=== PATIENT | female | born 1990 | race Caucasian/White ===

== ENCOUNTER 2021-10-19 19:25 | Emergency (ER) | payer OTHER ==
[2021-10-19] MEDS ORDERED: DUONEB 0.5-3 MG/3 ml Neb IH ONE ×2 (19:41→19:52)
[2021-10-19 19:56] LABS: Basophil (Absolute #) 0.02 (0-0.4); Eosinophil % 2.3 % (0.00-5.0); Eosinophil (Absolute #) 0.15 (0-0.5); Hematocrit 31.6 % (35-47); Hemoglobin 9.5 gm/dl (12.0-16.0); Lymphocyte (Absolute #) 1.76 (1.0-4.6); Mean Cell Volume 81.2 fl (78-100); Mean Corpuscular Hemoglobin 24.4 pg (26-32); Mean Corpuscular Hgb Concent. 30.1 g/dl (32-36); Mean Platelet Volume 9.9 fl (7.5-11.0); Monocyte (Absolute #) 0.48 (0.0-1.3); Monocytes % 7.4 % (0.0-12.0); Platelet Count 620 K/mm3 (150-450); Red Blood Count 3.89 M/mm3 (4.1-5.4); White Blood Count 6.5 K/mm3 (4.0-10.5)
[2021-10-19 20:08] LABS: ALBUMIN 4.4 g/dL (3.5-5.0); ALKALINE PHOSPHATASE 99 U/L (38-126); ANION GAP 14.5 MEQ/L (5-15); BLOOD UREA NITROGEN 7 mg/dL (7-17); CHLORIDE 105 mmol/L (98-107); Calcium 9.2 mg/dL (8.4-10.2); Carbon Dioxide 26 mmol/L (22-30); Creatinine 1 0.76 mg/dL (0.52-1.04); EST GLOMERULAR FILTRATION RATE > 60.0 ML/MIN; Glucose 80 mg/dL (74-106); MAGNESIUM 2.1 mg/dL (1.6-2.3); Potassium 3.7 mmol/L (3.5-5.1); SGOT/AST 38 U/L (14-36); SGPT/ALT 23 U/L (0-35); SODIUM 142 mmol/L (137-145)
--- NOTE | 2021-10-19 20:59 | ERPHSYRPT ---
- History of Present Illness Time Seen by Provider: 10/19/21 19:30 Source: patient Exam Limitations: no limitations Patient Subjective Stated Complaint: pt states "I began to be short of breath this morning." Triage Nursing Assessment: pt came into the er via wheelchair; pt is axo x4; c/o SOB; pt states she just had a total hysterectomy 3 weeks ago and was hospitalized with a blood clot in her lung 2 weeks ago; pt states that she has not been taking blood thinners; pt is restless in tripod position; pt states sharp pain with breathing; lung sounds are clear in all lobes anterior and posterior; O2 100% on room air; vitals wnl; pt denies cough, fever Physician History: 31 years old female with recent hysterectomy almost 3 weeks ago and developing PE, was hospitalized at [place], was started on Eliquis which she has not been taking since discharge presented with sudden onset increasing shortness of breath since morning with associated dull aching chest pain radiation to the shoulder blade area, moderate intensity and also having chest pain with deep breathing. No significant aggravating or relieving factors. Patient is very anxious. Denies any lower extremity swelling or pain. Has minimal nonproductive cough. No fever or chills reported. Timing/Duration: day(s) (1), constant, sudden, worse Activities at Onset: sleep Severity of Dyspnea-Max: severe Severity of Dyspnea-Current: severe Modifying Factors: Improves With: nothing Associated Symptoms: cough, chest pain/discomfort, painful breathing, tightness, No calf pain Allergies/Adverse Reactions: meclizine Allergy (Verified 10/19/21 19:26) Home Medications: Topiramate 100 mg PO BID 08/23/21 [History] Hx Tetanus, Diphtheria Vaccination/Date Given: No Hx Influenza Vaccination/Date Given: No Hx Pneumococcal Vaccination/Date Given: No Travel Risk - International Travel Have you traveled outside of the country in past 3 weeks: No - Coronavirus Screening Are you exhibiting any of the following symptoms?: Yes Symptoms: Shortness of Breath Close contact with a COVID-19 positive Pt in past 14-21 Days: No - Vaccine Status Have you recieved a Covid-19 vaccination: No - Review of Systems Constitutional: No Symptoms Eyes: No Symptoms Ears, Nose, & Throat: No Symptoms Respiratory: Cough, Dyspnea, Dyspnea on Exertion (AREVALO) Cardiac: Chest Pain Abdominal/Gastrointestinal: No Symptoms Genitourinary Symptoms: No Symptoms Musculoskeletal: No Symptoms Skin: No Symptoms Neurological: No Symptoms Psychological: Anxiety Hematologic/Lymphatic: Blood Clots Immunological/Allergic: No Symptoms - Past Medical History Pertinent Past Medical History: Yes Neurological History: Epilepsy ENT History: No Pertinent History Cardiac History: No Pertinent History Respiratory History: No Pertinent History Endocrine Medical History: No Pertinent History Musculoskeletal History: Fractures GI Medical History: Gallbladder Disease History: No Pertinent History Psycho-Social History: Anxiety, Depression Female Reproductive Disorders: Cervical Cancer, Menstrual Problems Other Medical History: poss.cervical cancer - Past Surgical History Past Surgical History: Yes Neuro Surgical History: No Pertinent History Cardiac: No Pertinent History Respiratory: No Pertinent History Gastrointestinal: Cholecystectomy Genitourinary: No Pertinent History Musculoskeletal: Joint Replacement Female Surgical History: Hysterectomy, Tubal Ligation Other Surgical History: 5 screw in left hip, 13 surgeries on left leg - Social History Smoking Status: Never smoker Exposure to second hand smoke: Yes Drug Use: none Patient Lives Alone: No - Female History Hx Now: No - Nursing Vital Signs Nursing Vital Signs: Initial Vital Signs Temperature 97.6 F 10/19/21 19:27 Pulse Rate 96 H 10/19/21 19:27 Respiratory Rate 12 10/19/21 19:27 Blood Pressure 95/78 10/19/21 19:27 O2 Sat by Pulse Oximetry 100 10/19/21 19:27 Pain Scale Pain Intensity 3 - Physical Exam General Appearance: no apparent distress, alert, anxiety Eye Exam: PERRL/EOMI, eyes nml inspection Ears, Nose, Throat Exam: hearing grossly normal, normal ENT inspection, normal pharynx Neck Exam: normal inspection, non-tender, supple, full range of motion Respiratory Exam: normal breath sounds, lungs clear, accessory muscle use Cardiovascular/Chest Exam: normal heart sounds, regular rate/rhythm Abdominal/Gastrointestinal Exam: soft, normal bowel sounds, No tenderness Extremity Exam: non-tender, normal range of motion, No calf tenderness, No pedal edema Neurologic Exam: alert, oriented x 3, 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, 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 Skin Exam: normal color SpO2 Interpretation: normal SpO2: 100 O2 Delivery: Room Air - Course EKG Interpreted by Me: RATE ([id number]), Sinus Rhythm, NORMAL AXIS, NORMAL INTERVALS, NORMAL QRS Ordered Tests: Active Orders 24 hr Category Date Time Status Weigh Box Tender STAT Care 05/12/22 19:46 Active EKG-ER Only STAT Care 10/19/21 19:41 Active IV Insertion STAT Care 10/19/21 19:41 Active Oxygen-ED Only Nasal Cannula 2 lpm Care 10/19/21 19:41 Active CHEST WITH CONTRAST [CT] Stat Exams 10/19/21 20:29 Taken CBC W DIFF Stat Lab 10/19/21 19:50 Completed CMP Stat Lab 10/19/21 19:50 Completed MAGNESIUM Stat Lab 10/19/21 19:50 Completed TROPONIN Q3H Lab 10/19/21 19:50 Completed TROPONIN Q3H Lab 10/19/21 22:59 Received TROPONIN Q3H Lab 10/20/21 01:45 Ordered TROPONIN Q3H Lab 10/20/21 04:45 Ordered TROPONIN Q3H Lab 10/20/21 07:45 Ordered Respiratory Therapy Assessment DAILY RT 10/19/21 19:56 Active Medication Summary Discontinued Medications Generic Name Dose Route Start Last Admin Trade Name Freq PRN Reason Stop Dose Admin Albuterol/Ipratropium 3 ml 10/19/21 19:41 10/19/21 19:54 Ipratropium/Albuterol Sulfate 3 Ml Ampul.Neb IH 10/19/21 19:42 3 ml STAT ONE Administration Albuterol/Ipratropium Confirm 10/19/21 19:52 Ipratropium/Albuterol Sulfate 3 Ml Ampul.Neb Administered 10/19/21 19:53 Dose 3 ml IH .STK-MED ONE Apixaban 10 mg 10/19/21 21:18 10/19/21 21:27 Apixaban 2.5 Mg Tablet PO 10/19/21 21:19 10 mg ONCE STA Administration Aspirin 324 mg 10/19/21 21:04 10/19/21 21:06 Aspirin 81 Mg Tab.Chew PO 10/19/21 21:05 324 mg STAT ONE Administration Aspirin Confirm 10/19/21 21:05 Aspirin 81 Mg Tab.Chew Administered 10/19/21 21:06 Dose 324 mg .ROUTE .STK-MED ONE Ketorolac Tromethamine 30 mg 10/19/21 21:04 10/19/21 21:06 Ketorolac Tromethamine 30 Mg/Ml Inj IV 10/19/21 21:05 30 mg STAT ONE Administration Ketorolac Tromethamine Confirm 05/12/22 21:05 Ketorolac Tromethamine 30 Mg/Ml Inj Administered 10/19/21 21:06 Dose 30 mg .ROUTE .[employer]-MED ONE Lab/Rad Data: Laboratory Result Diagrams 10/19/21 19:50 10/19/21 19:50 Laboratory Results 10/19/21 10/19/21 10/19/21 Range/Units 19:50 19:50 19:50 WBC 6.5 (4.0-10.5) K/mm3 RBC 3.89 L (4.1-5.4) M/mm3 Hgb 9.5 L (12.0-16.0) gm/dl Hct 31.6 L (35-47) % MCV 81.2 (78-100) fl MCH 24.4 L (26-32) pg MCHC 30.1 L (32-36) g/dl RDW 14.0 (11.5-14.0) % Plt Count 620 H (150-450) K/mm3 MPV 9.9 (7.5-11.0) fl Gran % 63.0 (36.0-66.0) % Eos # (Auto) 0.15 (0-0.5) Absolute Lymphs (auto) 1.76 (1.0-4.6) Absolute Monos (auto) 0.48 (0.0-1.3) Lymphocytes % 27.0 (24.0-44.0) % Monocytes % 7.4 (0.0-12.0) % Eosinophils % 2.3 (0.00-5.0) % Basophils % 0.3 (0.0-0.4) % Absolute Granulocytes 4.10 (1.4-6.9) Basophils # 0.02 (0-0.4) Sodium 142 (137-145) mmol/L Potassium 3.7 (3.5-5.1) mmol/L Chloride 105 (98-107) mmol/L Carbon Dioxide 26 (22-30) mmol/L Anion Gap 14.5 (5-15) MEQ/L BUN 7 (7-17) mg/dL Creatinine 0.76 (0.52-1.04) mg/dL Estimated GFR > 60.0 ML/MIN Glucose 80 (74-106) mg/dL Calcium 9.2 (8.4-10.2) mg/dL Magnesium 2.1 (1.6-2.3) mg/dL Total Bilirubin 0.60 (0.2-1.3) mg/dL AST 38 H (14-36) U/L ALT 23 (0-35) U/L Alkaline Phosphatase 99 (38-126) U/L Troponin I < 0.012 (0.000-0.034) ng/mL Serum Total Protein 8.0 (6.3-8.2) g/dL Albumin 4.4 (3.5-5.0) g/dL - Progress Progress: improved Air Movement: good Progress Note: 10/19/21 23:09 31-year-old is evaluated for chest pain/shortness of breath. EKG showed sinus rhythm without any ST elevation and negative troponins x2. I have obtained CTA chest which is negative for acute PE. Patient recently had subsegmental PE and is on Eliquis. I have given her a dose of Eliquis and recommended continue to go home which she has at home. Low risk for CAD. Discussed signs symptoms of worsening needing return to ER which he seems understanding. Blood Culture(s) Obtained: No Antibiotics given: No Counseled pt/family regarding: lab results, diagnosis, need for follow-up, rad results - Departure Departure Disposition: Home Clinical Impression: Atypical chest pain, Dyspnea Condition: Stable Critical Care Time: No Referrals: SCOTT HERBERT MD [Primary Care Provider] - Follow up/PCP as directed (1-2 days for reevaluation) Instructions: Shortness of Breath (Dyspnea) (DC) Additional Instructions: Continue with your Eliquis daily as recommended. Follow-up with primary care for reevaluation. Return to ER if again having chest pain palpitations or shortness of breath etc.
[2021-10-19] MEDS ORDERED: BABY ASPIRIN 81 MG CHEW PO ONE (21:04)
[2021-10-19] MEDS ORDERED: TORAdol 30 mg Injection IV ONE (21:04)
[2021-10-19] MEDS ORDERED: TORAdol 30 mg Injection ONE (21:05)
[2021-10-19] MEDS ORDERED: BABY ASPIRIN 81 MG CHEW ONE (21:05)
[2021-10-19] MEDS ORDERED: ELIQUIS 2.5 MG TABLET PO STA (21:18)
[2021-10-19 23:05] VITALS: BP 111/69; PULSE 66
[2021-10-19 23:11] VITALS: O2SAT 100
--- NOTE | 2021-10-20 09:16 | XRAY ---
Indication: Severe chest pain and heaviness. Status post hysterectomy 3 weeks ago. Pulmonary embolus. Multiple contiguous axial images obtained through the chest using 80 cc Isovue 370 contrast and PE protocol. Comparison: None There is good opacification of the pulmonary arteries to include the lobar and segmental branches. No pulmonary embolus. Heart not enlarged. Aorta is normal in course and caliber. Small left hilar calcified nodes. No pathologic mediastinal/hilar lymphadenopathy. Lungs inflated and clear with incidental tiny left lower lobe calcified granuloma. Bony thorax intact. Limited upper abdomen demonstrates mild fatty liver and cholecystectomy clips. Impression: 1. Negative pulmonary embolus. No acute cardiopulmonary abnormalities. 2. Incidental fatty liver and old granulomatous disease.
== END 2021-10-19 23:41 | disposition home or self-care (01) ==
LOC: ED 19:25
DX: R07.89 Other chest pain (principal); R06.00 Dyspnea, unspecified; R05.9 Cough, unspecified; Z86.711 Personal history of pulmonary embolism; Z79.01 Long term (current) use of anticoagulants
CPT/HCPCS: 36000; 36415; 71260; 80053; 83735; 84484; 85025; 93005; 93041; 94640; 96374; 99284; J1885; A9270-GY

== ENCOUNTER → 2021-10-19 | Emergency (ER) | payer OTHER | LOC: ED 19:17 | DX: Z53.8 Procedure and treatment not carried out for other reasons (principal) ==

== ENCOUNTER 2021-12-06 11:45 | Day surgery (SDC) | payer OTHER ==
[2021-12-06] MEDS ORDERED: Sensorcaine 0.25% 10 ML IJ ONE (11:46)
[2021-12-06] MEDS ORDERED: XYLOCAINE-MPF 1% 5ML SDV IJ ONE (11:46)
[2021-12-06] MEDS ORDERED: DIPRIVAN 200 MG/20 ML IV ONE (12:30)
[2021-12-06] MEDS ORDERED: Versed 2 MG/2 ML Injection ONE (12:32)
[2021-12-06] MEDS ORDERED: Lactated Ringers 1,000 ML IV ONE (14:28)
--- NOTE | 2021-12-07 18:30 | XRAY ---
50 seconds of fluoroscopy was used in surgery for a right lumbar sympathetic nerve block.
--- NOTE | 2021-12-08 20:52 | XRAY ---
Indication: Right lumbar Sympathetic Nerve Block. Intraoperative fluoroscopy provided for 50 seconds. 4 digital spot images submitted for interpretation demonstrates posterior needle tip projecting just anterior to a mid lumbar L2L3 segment. Small amounts of contrast injected for needle tip placement. Correlate with intraoperative findings/report.
== END 2021-12-06 13:41 | disposition home or self-care (01) ==
LOC: SDC-PAIN 11:45
PROVIDERS: ATTEND Psychiatry & Neurology Pain Medicine
DX: G90.521 Complex regional pain syndrome I of right lower limb (principal); Z79.899 Other long term (current) drug therapy
CPT/HCPCS: 01952; 64520; 72100; 77002; J2250; J2704; Q9966

== ENCOUNTER 2022-04-11 15:07 | Day surgery (SDC) | payer OTHER ==
[2022-04-11] MEDS ORDERED: Xylocaine 1% Vial 30 ML PF IJ ONE (15:08)
[2022-04-11] MEDS ORDERED: BACIGUENT 30 GM ONE (15:31)
[2022-04-11] MEDS ORDERED: Versed 2 MG/2 ML Injection ONE ×2 (16:03→16:51)
[2022-04-11] MEDS ORDERED: Lactated Ringers 1,000 ML IV ONE (16:29)
[2022-04-11] MEDS ORDERED: Ketamine HCl 50 MG/ML ONE (16:52)
[2022-04-11] MEDS ORDERED: DIPRIVAN 200 MG/20 ML IV ONE ×2 (17:15→17:36)
[2022-04-11] MEDS ORDERED: BENADRYL 50 MG/ML ONE (17:58)
[2022-04-11] MEDS ORDERED: Zofran 4 MG/2 ML VIAL ONE (17:58)
--- NOTE | 2022-04-11 18:32 | XRAY ---
Indication: Spinal stimulator trial. Intraoperative fluoroscopy provided for 1 minute 4 seconds. 4 digital spot image submitted for interpretation demonstrates initial posterior introducer needle at the thoracolumbar junction. Ultimate insertion of epidural lead with tip terminating mid thoracic level. Correlate with intraoperative findings/report.
--- NOTE | 2022-04-11 18:36 | XRAY ---
1 minute and 4 seconds fluoroscopy time in surgery for spinal cord stimulator placement.
== END 2022-04-11 18:45 | disposition home or self-care (01) ==
LOC: SDC-PAIN 15:07
PROVIDERS: ATTEND Psychiatry & Neurology Pain Medicine
DX: G90.529 Complex regional pain syndrome I of unspecified lower limb (principal); Z79.899 Other long term (current) drug therapy
CPT/HCPCS: 01941; 63650; 72100; 77002; C1778; J1200; J2001; J2250; J2405; J2704; A9270-GY

== ENCOUNTER 2022-05-09 15:23 | Emergency (ER) | payer OTHER ==
--- NOTE | 2022-05-09 15:28 | ERPHSYRPT ---
- History of Present Illness Time Seen by Provider: 05/09/22 15:28 Historian: patient Exam Limitations: no limitations Physician History: This is a 32-year-old white female patient who is chronic abdominal pain and states that she has had severe, 10 out of 10, abdominal pain for several weeks. She does see a pain specialist and saw that specialist within the last 30 days. She has a history anxiety and depression. She states nothing is changed with her abdominal pain and the multiple episodes of vomiting that she is experienced. However, she states "I just cannot take it anymore" patient has a history of cervical cancer and underwent a hysterectomy in the past for this. She is also had a cholecystectomy in the past. She has no chest pain and she has no shortness of breath. She did state that she has had over 24 abdominal surgeries in the past. Timing/Duration: other (For several weeks) Quality: aching, cramping Abdominal Pain Onset Location: generalized abdomen Pain Radiation: no radiation Severity of Pain-Max: moderate Severity of Pain-Current: moderate Modifying Factors: Improves With: vomiting Associated Symptoms: loss of appetite, nausea, vomiting Previous symptoms: same symptoms as today, no recent treatment Allergies/Adverse Reactions: meclizine Allergy (Verified 05/09/22 15:35) Hx Tetanus, Diphtheria Vaccination/Date Given: No Hx Influenza Vaccination/Date Given: No Hx Pneumococcal Vaccination/Date Given: No Travel Risk - International Travel Have you traveled outside of the country in past 3 weeks: No - Coronavirus Screening Are you exhibiting any of the following symptoms?: No Close contact with a COVID-19 positive Pt in past 14-21 Days: No - Vaccine Status Have you recieved a Covid-19 vaccination: No - Review of Systems Constitutional: No Symptoms Eyes: No Symptoms Ears, Nose, & Throat: No Symptoms Respiratory: No Symptoms Cardiac: No Symptoms Abdominal/Gastrointestinal: Abdominal Pain, Nausea, Vomiting, No Diarrhea, No Constipation Genitourinary Symptoms: No Symptoms Musculoskeletal: No Symptoms Skin: No Symptoms Neurological: No Symptoms Psychological: No Symptoms Endocrine: No Symptoms Hematologic/Lymphatic: No Symptoms Immunological/Allergic: No Symptoms All Other Systems: Reviewed and Negative - Past Medical History Pertinent Past Medical History: Yes Neurological History: Epilepsy ENT History: No Pertinent History Cardiac History: No Pertinent History Respiratory History: No Pertinent History Endocrine Medical History: No Pertinent History Musculoskeletal History: Arthritis, Fractures GI Medical History: Gallbladder Disease History: No Pertinent History Psycho-Social History: Anxiety, Depression Female Reproductive Disorders: Cervical Cancer, Menstrual Problems Other Medical History: Hysterectomy due to ovarian CA. Epilepsy with seizures as anxiety increases - Past Surgical History Past Surgical History: Yes Neuro Surgical History: No Pertinent History Cardiac: No Pertinent History Respiratory: No Pertinent History Gastrointestinal: Cholecystectomy Genitourinary: No Pertinent History Musculoskeletal: Joint Replacement Female Surgical History: Hysterectomy, Tubal Ligation Other Surgical History: 5 screw in left hip, 13 surgeries on left leg - Social History Smoking Status: Never smoker Exposure to second hand smoke: Yes Drug Use: none Patient Lives Alone: No - Nursing Vital Signs Nursing Vital Signs: Initial Vital Signs Temperature 96.6 F 05/09/22 15:38 Pain Scale Pain Intensity 10 - Physical Exam General Appearance: mild distress, alert, anxiety Eye Exam: PERRL/EOMI, eyes nml inspection Ears, Nose, Throat Exam: normal ENT inspection, moist mucous membranes Neck Exam: normal inspection, non-tender, supple, full range of motion Respiratory Exam: normal breath sounds, lungs clear, No chest tenderness, No respiratory distress, No airway intact Cardiovascular Exam: regular rate/rhythm, normal heart sounds, normal peripheral pulses Gastrointestinal/Abdomen Exam: soft, normal bowel sounds, tenderness (Generalized to palpation), guarding (To palpation) Pelvic Exam: not done Rectal Exam: not done Back Exam: normal inspection, normal range of motion, No CVA tenderness, No vertebral tenderness Extremity Exam: normal inspection, normal range of motion, pelvis stable Neurologic Exam: alert, oriented x 3, cooperative, 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 nml as tested, normal mood/affect, nml cerebellar function, nml station & gait, sensation nml Skin Exam: normal color, warm, dry Lymphatic Exam: No adenopathy SpO2 Interpretation: normal O2 Delivery: Room Air - Course Nursing assessment & vital signs reviewed: Yes Ordered Tests: Active Orders 24 hr Category Date Time Status IV Insertion STAT Care 05/09/22 15:48 Active ABDOMEN AND PELVIS W/0 CONTRAS [CT] Stat Exams 05/09/22 16:50 Completed AMYLASE Stat Lab 05/09/22 15:50 Completed CBC W DIFF Stat Lab 05/09/22 15:50 Completed CMP Stat Lab 05/09/22 15:50 Completed CULTURE,URINE Stat Lab 05/09/22 15:56 Received LIPASE Stat Lab 05/09/22 15:50 Completed Lactic Acid Stat Lab 05/09/22 15:48 Completed UA W/RFX CULTURE Stat Lab 05/09/22 15:56 Completed Urine Triage Profile Stat Lab 05/09/22 15:56 Completed Medication Summary Discontinued Medications Generic Name Dose Route Start Last Admin Trade Name Freq PRN Reason Stop Dose Admin Hydromorphone HCl 1 mg 05/09/22 15:48 05/09/22 15:59 Hydromorphone 1 Mg/1ml Inj 1 Mg/Ml Syringe IV 05/09/22 15:49 1 mg STAT ONE Administration Hydromorphone HCl Confirm 05/09/22 15:55 Hydromorphone 1 Mg/1ml Inj 1 Mg/Ml Syringe Administered 05/09/22 15:56 Dose 1 mg .ROUTE .STK-MED ONE Sodium Chloride 1,000 mls @ 999 mls/hr 05/09/22 15:48 05/09/22 17:34 Sodium Chloride 0.9% 1000 Ml IV 05/09/22 16:48 Infused .Q1H1M STA Infusion Sodium Chloride Confirm 05/09/22 15:55 Sodium Chloride 0.9% 1000 Ml Administered 05/09/22 15:56 Dose 1,000 mls @ ud .ROUTE .STK-MED ONE Ondansetron HCl 4 mg 05/09/22 15:48 05/09/22 15:58 Ondansetron Hcl 4 Mg/2 Ml Vial IV 05/09/22 15:49 4 mg STAT ONE Administration Ondansetron HCl Confirm 05/09/22 15:55 Ondansetron Hcl 4 Mg/2 Ml Vial Administered 05/09/22 15:56 Dose 4 mg .ROUTE .STK-MED ONE Ondansetron HCl 4 mg 05/09/22 17:01 05/09/22 17:03 Ondansetron Hcl 4 Mg/2 Ml Vial IV 05/09/22 17:02 4 mg STAT ONE Administration Ondansetron HCl Confirm 05/09/22 17:02 Ondansetron Hcl 4 Mg/2 Ml Vial Administered 05/09/22 17:03 Dose 4 mg .ROUTE .STK-MED ONE Lab/Rad Data: Laboratory Result Diagrams 05/09/22 15:50 05/09/22 15:50 Laboratory Results 11/05/09/22 05/09/22 Range/Units 15:56 15:56 15:50 WBC (4.0-10.5) x10^3/uL RBC (4.1-5.4) x10^6/uL Hgb (12.0-16.0) g/dL Hct (35-47) % MCV (78-100) fL MCH (26-32) pg MCHC (32-36) g/dL RDW (11.5-14.0) % Plt Count (150-450) x10^3/uL MPV (7.5-11.0) fL Gran % (36.0-66.0) % Immature Gran % (Auto) (0.00-0.4) % Nucleat RBC Rel Count (0.00-0.1) % Eos # (Auto) (0-0.5) x10^3/uL Immature Gran # (Auto) (0.00-0.03) x10^3u/L Absolute Lymphs (auto) (1.0-4.6) x10^3/uL Absolute Monos (auto) (0.0-1.3) x10^3/uL Absolute Nucleated RBC (0.00-0.01) x10^3u/L Lymphocytes % (24.0-44.0) % Monocytes % (0.0-12.0) % Eosinophils % (0.00-5.0) % Basophils % (0.0-0.4) % Absolute Granulocytes (1.4-6.9) x10^3/uL Basophils # (0-0.4) x10^3/uL Sodium 141 (137-145) mmol/L Potassium 3.9 (3.5-5.1) mmol/L Chloride 104 (98-107) mmol/L Carbon Dioxide 29 (22-30) mmol/L Anion Gap 12.6 (5-15) MEQ/L BUN 12 (7-17) mg/dL Creatinine 0.80 (0.52-1.04) mg/dL Estimated GFR > 60.0 ML/MIN Glucose 94 (74-106) mg/dL Lactic Acid (0.4-2.0) Calcium 10.0 (8.4-10.2) mg/dL Total Bilirubin 1.60 H (0.2-1.3) mg/dL AST 22 (14-36) U/L ALT 18 (0-35) U/L Alkaline Phosphatase 99 (38-126) U/L Serum Total Protein 8.4 H (6.3-8.2) g/dL Albumin 5.0 (3.5-5.0) g/dL Amylase 69 (30-110) U/L Lipase 90 (23-300) U/L Urinalys Dipstick Clnc MAIN LAB Urine Color YELLOW (YELLOW) Urine Appearance CLOUDY A (CLEAR) Urine pH 7.5 (5-6) Ur Specific [place] 1.025 (1.005-1.025) POC Urine Protein Conf TRACE A (Negative) Urine Ketones NEGATIVE (NEGATIVE) Urine Nitrite NEGATIVE (NEGATIVE) Urine Bilirubin NEGATIVE (NEGATIVE) Urine Urobilinogen 1 A (0-1) mg/dL Urine Leukocytes NEGATIVE (NEGATIVE) Urine WBC (Auto) 11-15 A (0-5) /HPF Urine RBC (Auto) 3-5 A (0-2) /HPF U Epithel Cells (Auto) MANY (FEW) /HPF Urine Bacteria (Auto) FEW A (NEGATIVE) /HPF Urine RBC NEGATIVE (0-5) Scott/ul Urine Mucus (Auto) MANY A (NEGATIVE) /HPF Ur Culture Indicated? YES Urine Glucose NEGATIVE (NEGATIVE) mg/dL Urine Opiates Level NEGATIVE (NEGATIVE) Ur Methadone NEGATIVE (NEGATIVE) Urine Barbiturates NEGATIVE (NEGATIVE) Ur Phencyclidine (PCP) NEGATIVE (NEGATIVE) Urine Amphetamine NEGATIVE (NEGATIVE) U Benzodiazepine Level NEGATIVE (NEGATIVE) Urine Cocaine NEGATIVE (NEGATIVE) Urine Marijuana (THC) NEGATIVE (NEGATIVE) 05/09/22 05/09/22 Range/Units 15:50 15:48 WBC 4.8 (4.0-10.5) x10^3/uL RBC 4.78 (4.1-5.4) x10^6/uL Hgb 13.7 (12.0-16.0) g/dL Hct 41.5 (35-47) % MCV 86.8 (78-100) fL MCH 28.7 (26-32) pg MCHC 33.0 (32-36) g/dL RDW 12.7 (11.5-14.0) % Plt Count 317 (150-450) x10^3/uL MPV 9.4 (7.5-11.0) fL Gran % 63.0 (36.0-66.0) % Immature Gran % (Auto) 0.2 (0.00-0.4) % Nucleat RBC Rel Count 0.0 (0.00-0.1) % Eos # (Auto) 0.03 (0-0.5) x10^3/uL Immature Gran # (Auto) 0.01 (0.00-0.03) x10^3u/L Absolute Lymphs (auto) 1.41 (1.0-4.6) x10^3/uL Absolute Monos (auto) 0.29 (0.0-1.3) x10^3/uL Absolute Nucleated RBC 0.00 (0.00-0.01) x10^3u/L Lymphocytes % 29.7 (24.0-44.0) % Monocytes % 6.1 (0.0-12.0) % Eosinophils % 0.6 (0.00-5.0) % Basophils % 0.4 (0.0-0.4) % Absolute Granulocytes 2.99 (1.4-6.9) x10^3/uL Basophils # 0.02 (0-0.4) x10^3/uL Sodium (137-145) mmol/L Potassium (3.5-5.1) mmol/L Chloride (98-107) mmol/L Carbon Dioxide (22-30) mmol/L Anion Gap (5-15) MEQ/L BUN (7-17) mg/dL Creatinine (0.52-1.04) mg/dL Estimated GFR ML/MIN Glucose (74-106) mg/dL Lactic Acid 0.8 (0.4-2.0) Calcium (8.4-10.2) mg/dL Total Bilirubin (0.2-1.3) mg/dL AST (14-36) U/L ALT (0-35) U/L Alkaline Phosphatase (38-126) U/L Serum Total Protein (6.3-8.2) g/dL Albumin (3.5-5.0) g/dL Amylase (30-110) U/L Lipase (23-300) U/L Urinalys Dipstick Clnc Urine Color (YELLOW) Urine Appearance (CLEAR) Urine pH (5-6) Ur Specific [place] (1.005-1.025) POC Urine Protein Conf (Negative) Urine Ketones (NEGATIVE) Urine Nitrite (NEGATIVE) Urine Bilirubin (NEGATIVE) Urine Urobilinogen (0-1) mg/dL Urine Leukocytes (NEGATIVE) Urine WBC (Auto) (0-5) /HPF Urine RBC (Auto) (0-2) /HPF U Epithel Cells (Auto) (FEW) /HPF Urine Bacteria (Auto) (NEGATIVE) /HPF Urine RBC (0-5) Scott/ul Urine Mucus (Auto) (NEGATIVE) /HPF Ur Culture Indicated? Urine Glucose (NEGATIVE) mg/dL Urine Opiates Level (NEGATIVE) Ur Methadone (NEGATIVE) Urine Barbiturates (NEGATIVE) Ur Phencyclidine (PCP) (NEGATIVE) Urine Amphetamine (NEGATIVE) U Benzodiazepine Level (NEGATIVE) Urine Cocaine (NEGATIVE) Urine Marijuana (THC) (NEGATIVE) - Progress Progress: improved, pain not gone completely, re-examined Progress Note: 05/09/22 18:05 CAT scan of the abdomen and pelvis without contrast shows no acute intra- abdominal or intrapelvic process/abnormality Counseled pt/family regarding: lab results, diagnosis, need for follow-up, rad results - Departure Departure Disposition: Home Clinical Impression: Chronic abdominal pain Condition: Stable Critical Care Time: No Referrals: SCOTT HERBERT MD [Primary Care Provider] - Follow up/PCP as directed Additional Instructions: Drink plenty of clear liquids. Do not advance your diet until you are drinking clear liquids well. Take your medication as prescribed. Follow-up with your primary care provider for further evaluation management. Prescriptions: Ondansetron ODT 4 MG [Zofran Odt 4 mg] 4 mg PO Q6H PRN PRN #10 tablet PRN Reason: Vomiting Famotidine 20 mg [Pepcid 20 MG] 20 mg PO DAILY #10 tablet
[2022-05-09] MEDS ORDERED: Hydromorphone 1 mg/ml Injection IV ONE (15:48)
[2022-05-09] MEDS ORDERED: Zofran 4 MG/2 ML VIAL IV ONE ×2 (15:48→17:01)
[2022-05-09] MEDS ORDERED: Sodium Chloride 0.9% 1000 ML 1,000 ML IV STA (15:48)
[2022-05-09] MEDS ORDERED: Hydromorphone 1 mg/ml Injection ONE (15:55)
[2022-05-09] MEDS ORDERED: Sodium Chloride 0.9% 1000 ML 1,000 ML ONE (15:55)
[2022-05-09] MEDS ORDERED: Zofran 4 MG/2 ML VIAL ONE ×2 (15:55→17:02)
[2022-05-09 15:57] LABS: Absolute Neutrophil Ct (ANC) 2.99 x10^3/uL (1.4-6.9); Basophil (Absolute #) 0.02 x10^3/uL (0-0.4); Eosinophil % 0.6 % (0.00-5.0); Eosinophil (Absolute #) 0.03 x10^3/uL (0-0.5); Hematocrit 41.5 % (35-47); Hemoglobin 13.7 g/dL (12.0-16.0); Lymphocyte (Absolute #) 1.41 x10^3/uL (1.0-4.6); Lymphocytes % 29.7 % (24.0-44.0); Mean Cell Volume 86.8 fL (78-100); Mean Corpuscular Hemoglobin 28.7 pg (26-32); Mean Platelet Volume 9.4 fL (7.5-11.0); Monocyte (Absolute #) 0.29 x10^3/uL (0.0-1.3); Monocytes % 6.1 % (0.0-12.0); Platelet Count 317 x10^3/uL (150-450); Red Blood Count 4.78 x10^6/uL (4.1-5.4); Red Cell Distribution Width 12.7 % (11.5-14.0); White Blood Count 4.8 x10^3/uL (4.0-10.5)
[2022-05-09 16:03] LABS: Appearance CLOUDY (CLEAR); Bacteria FEW /HPF (NEGATIVE); Bilirubin NEGATIVE (NEGATIVE); Epithelial Cells MANY /HPF (FEW); Glucose NEGATIVE (NEGATIVE); Ketones NEGATIVE (NEGATIVE); Mucus MANY /HPF (NEGATIVE)
[2022-05-09 16:04] LABS: Dipstick done @ ? MAIN LAB; Nitrite NEGATIVE (NEGATIVE); Ph 7.5 (5-6); Protein,Urine Dip TRACE (Negative); RBC NEGATIVE Ery/ul (0-5); Specific Gravity 1.025 (1.005-1.025); Urine Cultured Indicated? YES; Urobilinogen 1 mg/dL (0-1)
[2022-05-09 16:10] LABS: ALKALINE PHOSPHATASE 99 U/L (38-126); AMYLASE 69 U/L (30-110); ANION GAP 12.6 MEQ/L (5-15); BLOOD UREA NITROGEN 12 mg/dL (7-17); CHLORIDE 104 mmol/L (98-107); Carbon Dioxide 29 mmol/L (22-30); EST GLOMERULAR FILTRATION RATE > 60.0 ML/MIN; Glucose 94 mg/dL (74-106); LIPASE 90 U/L (23-300); Potassium 3.9 mmol/L (3.5-5.1); SGOT/AST 22 U/L (14-36); SGPT/ALT 18 U/L (0-35); SODIUM 141 mmol/L (137-145); Total Protein 8.4 g/dL (6.3-8.2)
[2022-05-09 16:21] LABS: Amphetamine,Urine NEGATIVE (NEGATIVE); Barbiturate,Urine NEGATIVE (NEGATIVE); Benzodiazepine,Urine NEGATIVE (NEGATIVE); Cocaine,Urine NEGATIVE (NEGATIVE); Methadone,Urine NEGATIVE (NEGATIVE); Opiate,Urine NEGATIVE (NEGATIVE); PCP,Urine NEGATIVE (NEGATIVE); THC,Urine NEGATIVE (NEGATIVE)
[2022-05-09 17:08] VITALS: BP 111/81; PULSE 52; O2SAT 99
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
== END 2022-05-09 18:22 | disposition home or self-care (01) ==
LOC: ED 15:23
DX: G89.29 Other chronic pain (principal); R10.84 Generalized abdominal pain; R11.2 Nausea with vomiting, unspecified; Z28.310 Unvaccinated for COVID-19
CPT/HCPCS: 36000; 36415; 74176; 80053; 80307; 81015; 82150; 83605; 83690; 85025; 87086; 96360; 96374; 96375; 99284; J1170; J2405

== ENCOUNTER 2022-10-21 20:12 | Emergency (ER) | payer OTHER ==
[2022-10-21] MEDS ORDERED: BABY ASPIRIN 81 MG CHEW PO ONE (20:37)
[2022-10-21] MEDS ORDERED: BABY ASPIRIN 81 MG CHEW ONE (20:44)
--- NOTE | 2022-10-21 20:49 | ERPHSYRPT ---
- History of Present Illness Time Seen by Provider: 10/21/22 20:17 Historian: patient Exam Limitations: no limitations Patient Subjective Stated Complaint: pt states "I started having chest pain as soon as I woke up this morning. I shoots down my left arm. both my hands feel numb. My blood pressure was 190/120s at home." Triage Nursing Assessment: pt ambulatory to bed by self, pt alert and oriented x3, skin pwd, pt c/o chest pain that radiates to her left arm. pain started this morning when she woke up. pt rates pain /, pt on phone throughout triage, pt has hx PE and is on eliquis at home Physician History: 32-year-old female presented in the ER with chief complaint of chest pain all day long moderate to severe sharp without any significant aggravating or relieving factors, radiating to left arm with no associated palpitations or shortness of breath. Patient reports she is feeling shaky and tired, numbness of fingertips, difficulty walking and she twisted left ankle with swelling on the lateral side. No history of coronary artery disease. History of PE and on Eliquis. Timing/Duration: today, constant, gradual onset, worse Activities at Onset: rest Quality: sharpness Location: substernal Chest Pain Radiation: arm Severity of Pain-Max: severe Severity of Pain-Current: severe Modifying Factors: Improves With: nothing Associated Symptoms: denies symptoms Prior Chest Pain/Cardiac Workup: no prior chest pain Nitro Today/Relief: no nitro taken today Aspirin Treatment Today: no aspirin today Allergies/Adverse Reactions: meclizine Allergy (Verified 10/21/22 20:14) Home Medications: Apixaban [Eliquis] 5 mg PO DAILY 10/21/22 [History] Hx Tetanus, Diphtheria Vaccination/Date Given: Yes Hx Influenza Vaccination/Date Given: Yes Hx Pneumococcal Vaccination/Date Given: No Immunizations Up to Date: Yes Travel Risk - International Travel Have you traveled outside of the country in past 3 weeks: No - Coronavirus Screening Are you exhibiting any of the following symptoms?: No Close contact with a COVID-19 positive Pt in past 14-21 Days: No - Vaccine Status Have you recieved a Covid-19 vaccination: No - Review of Systems Constitutional: No Symptoms Eyes: No Symptoms Ears, Nose, & Throat: No Symptoms Respiratory: No Symptoms Cardiac: Chest Pain Abdominal/Gastrointestinal: No Symptoms Genitourinary Symptoms: No Symptoms Musculoskeletal: Injury, Joint Pain Skin: No Symptoms Neurological: No Symptoms Psychological: Anxiety Endocrine: No Symptoms Hematologic/Lymphatic: No Symptoms Immunological/Allergic: No Symptoms - Past Medical History Pertinent Past Medical History: Yes Neurological History: Epilepsy ENT History: No Pertinent History Cardiac History: No Pertinent History Respiratory History: No Pertinent History Endocrine Medical History: No Pertinent History Musculoskeletal History: Arthritis, Fractures GI Medical History: Gallbladder Disease History: No Pertinent History Psycho-Social History: Anxiety, Depression Female Reproductive Disorders: Cervical Cancer, Menstrual Problems Other Medical History: Hysterectomy due to ovarian CA. Epilepsy with seizures as anxiety increases - Past Surgical History Past Surgical History: Yes Neuro Surgical History: No Pertinent History Cardiac: No Pertinent History Respiratory: No Pertinent History Gastrointestinal: Cholecystectomy Genitourinary: No Pertinent History Musculoskeletal: Joint Replacement Female Surgical History: Hysterectomy, Tubal Ligation Other Surgical History: 5 screw in left hip, 13 surgeries on left leg - Social History Smoking Status: Never smoker Exposure to second hand smoke: No Drug Use: none Patient Lives Alone: No - Female History Hx Last Menstrual Period: hysterectomy Hx Now: No - Nursing Vital Signs Nursing Vital Signs: Initial Vital Signs Pulse Rate 69 10/21/22 20:15 Respiratory Rate 17 10/21/22 20:15 Blood Pressure 146/82 10/21/22 20:15 O2 Sat by Pulse Oximetry 100 10/21/22 20:15 Pain Scale Pain Intensity 10 - Physical Exam General Appearance: no apparent distress, alert, anxiety Eye Exam: PERRL/EOMI Ears, Nose, Throat Exam: normal ENT inspection, TMs normal, pharynx normal Neck Exam: normal inspection, non-tender, supple, full range of motion Respiratory Exam: normal breath sounds, lungs clear Cardiovascular Exam: regular rate/rhythm, normal heart sounds Gastrointestinal/Abdomen Exam: soft, normal bowel sounds, No tenderness Back Exam: normal inspection, normal range of motion Extremity Exam: normal inspection, normal range of motion, pelvis stable Neurologic Exam: alert, oriented x 3, cooperative, cloth shrinking tester II-XII nml as tested, nml cerebellar function, nml station & gait, sensation nml, No normal mood/affect Skin Exam: normal color SpO2 Interpretation: normal SpO2: 99 O2 Delivery: Room Air - Course EKG Interpreted by Me: RATE ([id number]), Sinus Rhythm, NORMAL AXIS, NORMAL INTERVALS, NORMAL QRS Ordered Tests: Active Orders 24 hr Category Date Time Status [employer] STAT Care 10/21/22 20:38 Active EKG-ER Only STAT Care 10/21/22 20:37 Active IV Insertion STAT Care 10/21/22 20:37 Active ANKLE (3 VIEWS) Stat Exams 10/21/22 20:38 Taken CHEST 1 VIEW (PORTABLE) Stat Exams 10/21/22 20:38 Taken CHEST WITH CONTRAST [CT] Stat Exams 10/21/22 23:22 Taken CBC W DIFF Stat Lab 10/21/22 20:41 Completed CMP Stat Lab 10/21/22 20:41 Completed D-DIMER QUANTITATIVE Stat Lab 10/21/22 20:45 Completed MAGNESIUM Stat Lab 10/21/22 20:41 Completed NT PRO BNPII Stat Lab 10/21/22 20:41 Completed TROPONIN Q4H Lab 10/21/22 20:41 Completed TROPONIN Q4H Lab 10/22/22 00:29 Received TROPONIN Q4H Lab 10/22/22 04:45 Ordered Urine Triage Profile Stat Lab 10/21/22 22:19 Completed Medication Summary Discontinued Medications Generic Name Dose Route Start Last Admin Trade Name Freq PRN Reason Stop Dose Admin Aspirin 324 mg 10/21/22 20:37 10/21/22 20:47 Aspirin 81 Mg Tab.Chew PO 10/21/22 20:38 324 mg STAT ONE Administration Aspirin Confirm 10/21/22 20:44 Aspirin 81 Mg Tab.Chew Administered 10/21/22 20:45 Dose 324 mg .ROUTE .STK-MED ONE Lorazepam 1 mg 10/21/22 22:46 10/21/22 22:48 Lorazepam 1 Mg Tablet PO 10/21/22 22:47 1 mg STAT ONE Administration Lorazepam Confirm 10/21/22 22:48 Lorazepam 1 Mg Tablet Administered 10/21/22 22:49 Dose 1 mg .ROUTE .STK-MED ONE Lab/Rad Data: Laboratory Result Diagrams 10/21/22 20:41 10/21/22 20:41 Laboratory Results 10/21/22 10/21/22 10/21/22 Range/Units 22:19 20:45 20:41 WBC (4.0-10.5) x10^3/uL RBC (4.1-5.4) x10^6/uL Hgb (12.0-16.0) g/dL Hct (35-47) % MCV (78-100) fL MCH (26-32) pg MCHC (32-36) g/dL RDW (11.5-14.0) % Plt Count (150-450) x10^3/uL MPV (7.5-11.0) fL Gran % (36.0-66.0) % Immature Gran % (Auto) (0.00-0.4) % Nucleat RBC Rel Count (0.00-0.1) % Eos # (Auto) (0-0.5) x10^3/uL Immature Gran # (Auto) (0.00-0.03) x10^3u/L Absolute Lymphs (auto) (1.0-4.6) x10^3/uL Absolute Monos (auto) (0.0-1.3) x10^3/uL Absolute Nucleated RBC (0.00-0.01) x10^3u/L Lymphocytes % (24.0-44.0) % Monocytes % (0.0-12.0) % Eosinophils % (0.00-5.0) % Basophils % (0.0-0.4) % Absolute Granulocytes (1.4-6.9) x10^3/uL Basophils # (0-0.4) x10^3/uL D-Dimer 5.49 H* (0.0-0.50) mg/L Sodium (137-145) mmol/L Potassium (3.5-5.1) mmol/L Chloride (98-107) mmol/L Carbon Dioxide (22-30) mmol/L Anion Gap (5-15) MEQ/L BUN (7-17) mg/dL Creatinine (0.52-1.04) mg/dL Estimated GFR ML/MIN Glucose (74-106) mg/dL Calcium (8.4-10.2) mg/dL Magnesium 1.9 (1.6-2.3) mg/dL Total Bilirubin (0.2-1.3) mg/dL AST (14-36) U/L ALT (0-35) U/L Alkaline Phosphatase (38-126) U/L Troponin I < 0.012 (0.000-0.034) ng/mL NT-Pro-B Natriuret Pep 113 (<300) pg/mL Serum Total Protein (6.3-8.2) g/dL Albumin (3.5-5.0) g/dL Urine Opiates Level NEGATIVE (NEGATIVE) Ur Methadone NEGATIVE (NEGATIVE) Urine Barbiturates NEGATIVE (NEGATIVE) Ur Phencyclidine (PCP) NEGATIVE (NEGATIVE) Urine Amphetamine NEGATIVE (NEGATIVE) U Benzodiazepine Level NEGATIVE (NEGATIVE) Urine Cocaine NEGATIVE (NEGATIVE) Urine Marijuana (THC) NEGATIVE (NEGATIVE) 10/21/22 10/21/22 Range/Units 20:41 20:41 WBC 7.4 (4.0-10.5) x10^3/uL RBC 4.47 (4.1-5.4) x10^6/uL Hgb 12.7 (12.0-16.0) g/dL Hct 40.1 (35-47) % MCV 89.7 (78-100) fL MCH 28.4 (26-32) pg MCHC 31.7 L (32-36) g/dL RDW 12.7 (11.5-14.0) % Plt Count 323 (150-450) x10^3/uL MPV 9.2 (7.5-11.0) fL Gran % 56.9 (36.0-66.0) % Immature Gran % (Auto) 0.4 (0.00-0.4) % Nucleat RBC Rel Count 0.0 (0.00-0.1) % Eos # (Auto) 0.12 (0-0.5) x10^3/uL Immature Gran # (Auto) 0.03 (0.00-0.03) x10^3u/L Absolute Lymphs (auto) 2.50 (1.0-4.6) x10^3/uL Absolute Monos (auto) 0.51 (0.0-1.3) x10^3/uL Absolute Nucleated RBC 0.00 (0.00-0.01) x10^3u/L Lymphocytes % 33.7 (24.0-44.0) % Monocytes % 6.9 (0.0-12.0) % Eosinophils % 1.6 (0.00-5.0) % Basophils % 0.5 (0.0-0.4) % Absolute Granulocytes 4.22 (1.4-6.9) x10^3/uL Basophils # 0.04 (0-0.4) x10^3/uL D-Dimer (0.0-0.50) mg/L Sodium 142 (137-145) mmol/L Potassium 3.6 (3.5-5.1) mmol/L Chloride 104 (98-107) mmol/L Carbon Dioxide 28 (22-30) mmol/L Anion Gap 13.9 (5-15) MEQ/L BUN 12 (7-17) mg/dL Creatinine 0.93 (0.52-1.04) mg/dL Estimated GFR > 60.0 ML/MIN Glucose 96 (74-106) mg/dL Calcium 9.4 (8.4-10.2) mg/dL Magnesium (1.6-2.3) mg/dL Total Bilirubin 0.60 (0.2-1.3) mg/dL AST 28 (14-36) U/L ALT 26 (0-35) U/L Alkaline Phosphatase 95 (38-126) U/L Troponin I (0.000-0.034) ng/mL NT-Pro-B Natriuret Pep (<300) pg/mL Serum Total Protein 8.0 (6.3-8.2) g/dL Albumin 4.5 (3.5-5.0) g/dL Urine Opiates Level (NEGATIVE) Ur Methadone (NEGATIVE) Urine Barbiturates (NEGATIVE) Ur Phencyclidine (PCP) (NEGATIVE) Urine Amphetamine (NEGATIVE) U Benzodiazepine Level (NEGATIVE) Urine Cocaine (NEGATIVE) Urine Marijuana (THC) (NEGATIVE) - Progress Progress: re-examined Air Movement: good Progress Note: 10/22/22 00:56 32-year-old is evaluated for multiple complaints of chest pain, numbness in the fingers, shakiness and left ankle pain with swelling. Patient is very anxious and switching from 1 topic to another. EKG showed sinus rhythm with no acute ischemic changes and negative troponins. Chest x-ray negative for any acute cardiopulmonary findings reviewed by me, official report is pending. X-ray of the left ankle is also negative for fracture dislocation reviewed by me, pending official report. Patient initially reported that she has been taking Eliquis regularly but later on she reported that she is not compliant with any of her medications. D-dimers are obtained and they are elevated, CTA is done. She is given Ativan for anxiety which does not help much according to patient. Patient has CTA done with read pending result but she does not want to stay in the hospital at all. She could is very angry and using abusive language in front of RN that we could not find any thing abnormal with her and would not like to stay in this hospital. I have tried to talk to her but she is not ready to listen anything, boyfriend's/significant other is also involved in decision of leaving AMA. She is not confused or altered at all. She left the ER in a stable condition. Blood Culture(s) Obtained: No Antibiotics given: No Counseled pt/family regarding: lab results, diagnosis, rad results Medical Desision Making - Discussion of managment Reviewed:: Test results, Need for additional workup - Diagnostic Testing Diagnostic test were ordered, analyzed, and reviewed by me: Yes Radiological Interpretation: Interpreted by me, Reviewed by me - Risk of complications The pt has a mod risk of morbidity or mortality based on: Need for prescription drug management - Departure Departure Disposition: AMA Clinical Impression: Atypical chest pain, Ankle sprain Condition: Stable Critical Care Time: No Referrals: SCOTT HERBERT MD [Primary Care Provider] - Follow up/PCP as directed
[2022-10-21 21:09] LABS: Absolute Neutrophil Ct (ANC) 4.22 x10^3/uL (1.4-6.9); BASOPHIL % 0.5 % (0.0-0.4); Basophil (Absolute #) 0.04 x10^3/uL (0-0.4); Eosinophil % 1.6 % (0.00-5.0); Eosinophil (Absolute #) 0.12 x10^3/uL (0-0.5); Hematocrit 40.1 % (35-47); Hemoglobin 12.7 g/dL (12.0-16.0); IMMATURE GRAN # 0.03 x10^3u/L (0.00-0.03); IMMATURE GRAN % 0.4 % (0.00-0.4); Lymphocytes % 33.7 % (24.0-44.0); Mean Cell Volume 89.7 fL (78-100); Mean Corpuscular Hemoglobin 28.4 pg (26-32); Mean Corpuscular Hgb Concent. 31.7 g/dL (32-36); Mean Platelet Volume 9.2 fL (7.5-11.0); Monocyte (Absolute #) 0.51 x10^3/uL (0.0-1.3); Monocytes % 6.9 % (0.0-12.0); Neutrophil % 56.9 % (36.0-66.0); Platelet Count 323 x10^3/uL (150-450); Red Blood Count 4.47 x10^6/uL (4.1-5.4); Red Cell Distribution Width 12.7 % (11.5-14.0); White Blood Count 7.4 x10^3/uL (4.0-10.5)
[2022-10-21 21:27] LABS: ALBUMIN 4.5 g/dL (3.5-5.0); ALKALINE PHOSPHATASE 95 U/L (38-126); ANION GAP 13.9 MEQ/L (5-15); BLOOD UREA NITROGEN 12 mg/dL (7-17); CHLORIDE 104 mmol/L (98-107); Calcium 9.4 mg/dL (8.4-10.2); Carbon Dioxide 28 mmol/L (22-30); Creatinine 1 0.93 mg/dL (0.52-1.04); EST GLOMERULAR FILTRATION RATE > 60.0 ML/MIN; Glucose 96 mg/dL (74-106); Potassium 3.6 mmol/L (3.5-5.1); SGOT/AST 28 U/L (14-36); SGPT/ALT 26 U/L (0-35); SODIUM 142 mmol/L (137-145)
[2022-10-21 21:38] LABS: MAGNESIUM 1.9 mg/dL (1.6-2.3); NT PRO BNPII 113 pg/mL (<300); TROPONIN < 0.012 ng/mL (0.000-0.034)
[2022-10-21 22:38] LABS: Amphetamine,Urine NEGATIVE (NEGATIVE); Barbiturate,Urine NEGATIVE (NEGATIVE); Benzodiazepine,Urine NEGATIVE (NEGATIVE); Cocaine,Urine NEGATIVE (NEGATIVE); Methadone,Urine NEGATIVE (NEGATIVE); Opiate,Urine NEGATIVE (NEGATIVE); PCP,Urine NEGATIVE (NEGATIVE); THC,Urine NEGATIVE (NEGATIVE)
[2022-10-21] MEDS ORDERED: Ativan 1 MG PO ONE (22:46)
[2022-10-21] MEDS ORDERED: Ativan 1 MG ONE (22:48)
[2022-10-21 23:17] VITALS: BP 103/71
[2022-10-22 00:33] VITALS: O2SAT 99
[2022-10-22 00:57] VITALS: PULSE 89
--- NOTE | 2022-10-22 01:07 | XRAY ---
CLINICAL HISTORY:Chest pain rule out pulmonary edema; COMPARISON:None; TECHNIQUES:Multiple axial CT images were obtained through the chest from the thoracic inlet to the level of adrenal glands with coronal and sagittal reformat images with IV contrast in the angiography technique. Images were reviewed in vascular, mediastinal, lung parenchymal, and bone window settings. CTDI: 31.92 mGy, DLP: 481.66 mGy.cm; FINDINGS: The pulmonary truncus measures 2.6 cm, the left main pulmonary artery measures 1.85 cm, and the right pulmonary artery measures 1.85 cm which is normal in size. Pulmonary truncus with right and left pulmonary arteries are normal in size and configuration. Bilateral pulmonary artery lobar, segmental, and subsegmental branches are normal in size and configuration. No filling defects or thrombosis. There is no mediastinal, hilar, or axillary lymphadenopathy. The trachea and mainstem bronchi are patent. The heart size is normal in size and shape. There is no pericardial effusion. The ascending aorta is a normal course and configuration without dissection or aneurysm. dissection. The esophagus is normal in course and caliber. The areas of both lungs show normal aeration. There is no consolidation, nodule, or mass lesion. There is no pleural effusion or pneumothorax. No abnormality in surrounding soft tissues. The osseous structures are unremarkable. There is TENS electrode in the thoracic spinal canal. In the included abdomen. Limited visualization of the examined abdominal organs demonstrates no abnormality. IMPRESSION: No pulmonary artery emboli were detected. No acute pulmonary pathology. TENS electrode in the spinal canal. Electronically Signed by: Yin Landers MD. (10/22/2022 00:01:16 [employer])
--- NOTE | 2022-10-22 08:37 | XRAY ---
Indication: Pain following fall. Comparison: None 3 view left ankle demonstrates tiny heel spurs and lateral soft tissue swelling. No other bony, articular, or soft tissue abnormalities.
--- NOTE | 2022-10-22 08:37 | XRAY ---
Indication: Chest pain. Comparison: None Portable chest demonstrates normal heart, lungs, and bony thorax with incidental epidural leads terminating T7.
== END 2022-10-22 01:00 | disposition left against medical advice (07) ==
LOC: ED 20:12
DX: R07.89 Other chest pain (principal); S93.402A Sprain of unspecified ligament of left ankle, initial encounter; X50.0XXA Overexertion from strenuous movement or load, initial encounter; Z79.01 Long term (current) use of anticoagulants; Z28.310 Unvaccinated for COVID-19
CPT/HCPCS: 36000; 36415; 71045; 71260; 73610; 80053; 80307; 83735; 83880; 84484; 85025; 85379; 93005; 93041; 99284; A9270-GY